=== PATIENT | female | born 1985 | race Caucasian/White ===

== ENCOUNTER → 2017-01-20 | Outpatient (CLI) | payer OTHER ==
[~2017-01-20] MED LIST: DOCU100C37 PO; IBUP-1780 PO; METO-272 PO; OXYC-465 PO; PROP1TAB77 PO
--- NOTE | 2017-01-20 14:18 | Diagnostic Imaging Report ---
PROCEDURE: US Thyroid. TECHNIQUE: Multiple real-time grayscale images were obtained of the thyroid in various projections. INDICATION: Pain in the thyroid region. FINDINGS: The right thyroid lobe is 5.2 x 1.4 x 1.6 cm. The left lobe is 5.1 x 1.4 x 1.7 cm. No focal mass is seen with homogeneous thyroid parenchyma noted. IMPRESSION: Unremarkable exam. Dictated by: Dictated on workstation # [id number]
== END ==
LOC: RAD 10:14
PROVIDERS: ATTEND Nurse Practitioner Family
DX: E07.89 Other specified disorders of thyroid (principal)
CPT/HCPCS: 76536

== ENCOUNTER → 2017-01-31 | Outpatient (CLI) | payer OTHER ==
[~2017-01-31] MED LIST changes: +BARIUM SUSPENSION 105% (LIQUID POLIBAR PLUS) 240 ML/DOSE PO ONE; +BARIUM SUSPENSION 60% (LIQUID EZ PAQUE) 240 ML DOSE PO ONE
== END ==
LOC: RAD 09:42
PROVIDERS: ATTEND Nurse Practitioner Family
DX: R13.10 Dysphagia, unspecified (principal)
CPT/HCPCS: 74220

== ENCOUNTER → 2019-11-20 | Outpatient (CLI) | payer BC, OTHER ==
[~2019-11-20] MED LIST changes: -BARIUM SUSPENSION 105% (LIQUID POLIBAR PLUS) 240 ML/DOSE PO ONE; -BARIUM SUSPENSION 60% (LIQUID EZ PAQUE) 240 ML DOSE PO ONE
--- NOTE | 2019-11-20 12:18 | Diagnostic Imaging Report ---
PROCEDURE: US Thyroid. TECHNIQUE: Multiple real-time grayscale images were obtained of the thyroid in various projections. INDICATION: Abnormal thyroid hormone levels. COMPARISON: Thyroid ultrasound performed on 01/20/2017. FINDINGS: RIGHT: The right thyroid lobe measures 5.0 x 1.2 x 1.7 cm and demonstrates mildly heterogeneous echotexture and normal vascularity. No focal nodule is seen. LEFT: The left thyroid lobe measures 4.4 x 1.4 x 1.5 cm and demonstrates mildly heterogeneous echotexture and normal vascularity. No focal nodule is seen. ISTHMUS: The isthmus is normal in thickness, measuring 0.4 cm. IMPRESSION: Mildly heterogeneous thyroid echotexture, without abnormal vascularity. This is a nonspecific finding likely related to the reported abnormal thyroid hormone levels and can be seen in such entities as Ho thyroiditis and Graves' disease. No focal thyroid nodule is seen. Dictated by: Dictated on workstation # [id number]
== END ==
LOC: RAD 11:02
PROVIDERS: ATTEND Family Medicine
DX: R94.6 Abnormal results of thyroid function studies (principal)
CPT/HCPCS: 76536

== ENCOUNTER → 2020-05-11 | Outpatient (CLI) | payer BC ==
[~2020-05-11] MED LIST changes: -OXYC-465 PO; +OXYC-556 PO
--- NOTE | 2020-05-11 13:02 | Diagnostic Imaging Report ---
INDICATION: DYSPNEA, CHEST TIGHTNESS COMPARISON: 01/31/2017 FINDINGS: Frontal and lateral views of the chest demonstrate normal heart size and pulmonary vascularity. The lungs show low inspiratory volumes, but are otherwise clear. There are no signs of infiltrate, pleural effusions or pneumothoraces. The visualized osseous structures show no acute abnormalities. IMPRESSION: 1. No acute process. No signs of infiltrates, effusions or pneumothoraces. Dictated by: Dictated on workstation # [id number]
== END ==
LOC: CARD 12:24
PROVIDERS: ATTEND Family Medicine
DX: R07.89 Other chest pain (principal); R06.00 Dyspnea, unspecified
CPT/HCPCS: 71046; 93005

== ENCOUNTER → 2020-08-07 | Outpatient (CLI) | payer BC ==
--- NOTE | 2020-08-10 08:44 | Diagnostic Imaging Report ---
INDICATION: Routine screening. No prior mammograms are available for comparison. 2-D and 3-D bilateral screening mammography was performed with CAD. Both breasts are heterogeneously dense, limiting the sensitivity of mammography. There are numerous circumscribed rounded masses in both breasts, most suggestive of cysts. The multiplicity is reassuring. No definite spiculated mass or malignant appearing microcalcifications are seen. Axillae are unremarkable. IMPRESSION: BI-RADS Category 2 No mammographic features suspicious for malignancy are identified. ACR BI-RADS Category 2: Benign findings. Result letter will be mailed to the patient. Note: At least 10% of breast cancer is not imaged by mammography. Dictated by: Dictated on workstation # [id number]
== END ==
LOC: RAD 15:00
PROVIDERS: ATTEND Obstetrics & Gynecology
DX: Z12.31 Encounter for screening mammogram for malignant neoplasm of breast (principal)
CPT/HCPCS: 77063; 77067

== ENCOUNTER → 2021-09-13 | Outpatient (CLI) | payer BC ==
--- NOTE | 2021-09-13 10:10 | Diagnostic Imaging Report ---
PROCEDURE: US Gallbladder. INDICATION: DYSPEPSIA TECHNIQUE: Multiple grayscale sonographic images were obtained of the right upper quadrant of the abdomen. CORRELATION STUDY: 09/01/2015 FINDINGS: LIVER: There is generalized increased echotexture within the visualized portions of the liver. The main portal vein is patent and with normal direction of flow. Liver length 15.7 cm. GALLBLADDER: The gallbladder demonstrates no definitive shadowing gallstones, abnormal gallbladder wall thickening or pericholecystic fluid. COMMON BILE DUCT: Not able to be identified. AORTA/IVC: Unremarkable. PANCREAS: Visualized portions appearing unremarkable. RIGHT KIDNEY: 11.2 x 5.3 x 5.0 cm. No hydronephrosis. OTHER: None. IMPRESSION: 1. Increased echogenicity of the liver parenchyma may reflect hepatic steatosis. No focal lesion. 2. Negative for gallstones. Common bile duct is obscured and unable to be demonstrated. Dictated by: Dictated on workstation # [id number]
== END ==
LOC: RAD 08:00
PROVIDERS: ATTEND Family Medicine
DX: R10.13 Epigastric pain (principal)
CPT/HCPCS: 76705

== ENCOUNTER → 2022-05-26 | Outpatient (CLI) | payer BC ==
--- NOTE | 2022-05-26 13:44 | Diagnostic Imaging Report ---
Indication: Left breast pain. Sonographic interrogation of the area of pain left breast was performed. This corresponds to the 3:00 location. No underlying abnormality at this location is identified. No solid or cystic masses are seen. Evaluation of the remainder of the left breast including all 4 quadrants and retroareolar region was performed. There are numerous cysts in the left breast. The largest cyst is located at the 10:00 location, 2 cm from from the nipple measuring 3.5 x 1.3 x 3.0 cm. Numerous additional smaller cysts are seen. There are no solid masses. IMPRESSION: BI-RADS Category 2 Numerous left breast cysts. No solid mass or concerning sonographic finding is identified. In particular, no abnormality at the area of pain at the 3:00 location is identified. ACR BI-RADS Category 2: Benign findings. Dictated by: Dictated on workstation # [id number]
== END ==
LOC: RAD 12:07
PROVIDERS: ATTEND Nurse Practitioner Women's Health
DX: N60.02 Solitary cyst of left breast (principal)
CPT/HCPCS: 76641